=== PATIENT | male | born 1955 | race Caucasian/White ===

== ENCOUNTER 2016-05-17 12:30 | Emergency (ER) | payer OTHER ==
[~2016-05-17] VITALS: Ht 177.8 cm; Wt 90.7 kg
--- NOTE | 2016-05-17 12:56 | ED GENERAL ADULT ---
History of Present Illness General Chief Complaint: Psychiatric Related Complaint Stated Complaint: DEPRESSION; ANXIETY ATTACK Source: patient, old records Exam Limitations: no limitations Vital Signs & Intake/Output Vital Signs & Intake/Output Vital Signs Date Time Temp Pulse Resp B/P Pulse O2 O2 Flow FiO2 Ox Delivery Rate 05/17 1235 96.5 96 22 129/87 100 Room Air Room Air Allergies Coded Allergies: No Known Allergies (05/17/16) Reconcile Medications Allopurinol 300 MG TABLET 1 TAB PO DAILY GOUT (Reported) Atenolol 50 MG TABLET 1 TAB PO DAILY HEART (Reported) Mirtazapine 30 MG TABLET 1 TAB PO QPM SLEEP (Reported) Quetiapine Fumarate 400 MG TABLET 1 TAB PO QPM MENTAL HEALTH (Reported) Quetiapine Fumarate 50 MG TABLET 1 TAB PO QPM MENTAL HEALTH (Reported) Ramelteon (Rozerem) 8 MG TABLET 1 TAB PO QPM SLEEP (Reported) Rosuvastatin Calcium (Crestor) 20 MG TABLET 1 TAB PO DAILY CHOLESTEROL ( Reported) Triage Note: TRIAGE: 60 Y/O MALE PRESENTS C/O "ANXIETY ATTACK", REQUESTING MEDICATION. HISTORY OF MANIC DEPRESSION AND ANXIETY. REPORTS OCCASSIONAL ETOH CONSUMPTION, MARIJUANA USE, DAILY HALF PACK CIGARETTES. PATIENT DENIES SUICIDALITY, HOMICIDALITY. Triage Nurses Notes Reviewed? yes HPI: Patient presents requesting medication for anxiety. Patient states that he has bipolar and is currently in a manic episode. Patient states that his psychiatrist is on vacation and that he was told that if he ever cannot get alt of his psychiatrist just come to the emergency room. Patient denies any suicidal or homicidal ideations. Patient denies any hallucinations. Patient states that he is having racing thoughts. Patient states that he was admitted once in the late 1980s but does not feel that he is at the point that he needs admission currently. Past History Travel History Traveled to [place] past 21 day No Medical History Any Pertinent Medical History? see below for history Psychiatric: anxiety, MANIC DEPRESSION Surgical History Surgical History: non-contributory Psychosocial History What is your primary language Urdu Tobacco Use: Current Daily Use Daily Tobacco Use Amount/Type: => 5 Cigarettes daily ETOH Use: occasional use Illicit Drug Use: marijuana Family History Hx Contributory? No Review of Systems Review of Systems Constitutional: Reports: no symptoms. EENTM: Reports: no symptoms. Respiratory: Reports: no symptoms. Cardiovascular: Reports: no symptoms. GI: Reports: no symptoms. Genitourinary: Reports: no symptoms. Musculoskeletal: Reports: no symptoms. Skin: Reports: no symptoms. Neurological/Psychological: Reports: see HPI, anxiety. Hematologic/Endocrine: Reports: no symptoms. Immunologic/Allergic: Reports: no symptoms. All Other Systems: Reviewed and Negative Physical Exam Physical Exam General Appearance: well developed/nourished, alert, awake, anxious, moderate distress Head: atraumatic, normal appearance Eyes: Bilateral: PERRL, EOMI, other (HYPERVIGILANT). Ears, Nose, Throat: normal pharynx, normal ENT inspection, hearing grossly normal Neck: normal inspection, supple, full range of motion Respiratory: normal breath sounds, chest non-tender, no respiratory distress, lungs clear Cardiovascular: regular rate/rhythm, normal peripheral pulses Gastrointestinal: normal bowel sounds, soft, non-tender, no organomegaly Back: normal inspection, normal range of motion Extremities: normal inspection, normal capillary refill, normal range of motion, no edema Neurologic/Psych: no motor/sensory deficits, awake, alert, oriented x 3, normal gait, RAPID SPEECH Skin: intact, normal color, warm/dry Lymphatic: no anterior cervical maria t Core Measures ACS in differential dx? No CVA/TIA Diagnosis: No Severe Sepsis Present: No Septic Shock Present: No Progress Differential Diagnoses I considered the following diagnoses in my evaluation of the patient: [Manic episode] Plan of Care: Orders Procedure Date/time Status URINE DRUGS OF ABUSE 05/17 1256 Complete ETHANOL 05/17 1256 Complete COMPREHENSIVE METABOLIC PANEL 05/17 1256 Complete CBC WITHOUT DIFFERENTIAL 05/17 1256 Complete ED CRISIS PSYCH CONSULT 05/17 1256 Active Laboratory Tests 05/17/16 1402: Urine Opiates Screen < 100.00, Methadone Screen 93, Barbiturate Screen < 60, Ur Phencyclidine Scrn < 6.00, Amphetamines Screen < 100, U Benzodiazepines Scrn 124 , Urine Cocaine Screen < 50, Urine Cannabis Screen > 80.00 H 05/17/16 1307: Anion Gap 16, Estimated GFR 56 L, BUN/Creatinine Ratio 19.2, Glucose 121 H, Calcium 10.2, Total Bilirubin 0.6, AST 75 H, ALT 90 H, Alkaline Phosphatase 85 , Total Protein 7.7, Albumin 4.6, Globulin 3.1, Albumin/Globulin Ratio 1.5, CBC w Diff NO MAN DIFF REQ, RBC 5.32, MCV 92.1, MCH 30.3, RDW 16.1 H, MPV 10.3, Gran % 59.9, Lymphocytes % 27.3, Monocytes % 8.0, Eosinophils % 4.5, Basophils % 0.3, Absolute Granulocytes 5.2, Absolute Lymphocytes 2.3, Absolute Monocytes 0.7 H, Absolute Eosinophils 0.4, Absolute Basophils 0, PUBS MCHC 32.9 L, Serum Alcohol < 10.0 Initial ED EKG: none Comments: Patient has been seen and evaluated by the psychiatrist. The patient is cleared for discharge. The patient will be placed on Klonopin twice a day and will be given enough until he sees his psychiatrist on Thursday. Departure Departure Disposition: HOME OR SELF CARE Condition: Stable Clinical Impression Primary Impression: Anxiety Referrals: LAUREANO MENDOZA APRN (PCP/Family) Additional Instructions: FOLLOW UP WITH YOUR PSYCHIATRIST ON THURSDAY Departure Forms: Customer Survey General Discharge Information Prescriptions: Current Visit Scripts Clonazepam (Klonopin) 1 TAB PO BIDP PRN ANXIETY #4 TAB Critical Care Note Critical Care Note Critical Care Time: non-applicable
[2016-05-17] MEDS ORDERED: ATENOLOL50 M1 PO (13:02)
[2016-05-17] MEDS ORDERED: MIRTAZAPINE30 M2 PO (13:02)
[2016-05-17] MEDS ORDERED: ROZEREM8 M1 PO (13:03)
[2016-05-17] MEDS ORDERED: ALLOPURINOL300 M1 PO (13:03)
[2016-05-17] MEDS ORDERED: QUETIAPINE FUMA50 M1 PO (13:04)
[2016-05-17] MEDS ORDERED: QUETIAPINE FUM400 M1 PO (13:04)
[2016-05-17] MEDS ORDERED: CRESTOR20 M2 PO (13:06)
[2016-05-17 13:40] LABS: ABSOLUTE BASOPHIL COUNT 0 /CUMM (0.0-0.2); ABSOLUTE EOSINOPHIL COUNT 0.4 /CUMM (0.0-0.7); ABSOLUTE GRANULOCYTE CT 5.2 /CUMM (1.4-6.5); ABSOLUTE LYMPH COUNT 2.3 /CUMM (1.2-3.4); ABSOLUTE MONOCYTE COUNT 0.7 /CUMM (0.10-0.60); BASOPHIL % 0.3 % (0.0-2.0); EOSINOPHIL % 4.5 % (0-5); GRANULOCYTE % 59.9 % (42.2-75.2); MEAN CORPUSCULAR HGB 30.3 PG (27.0-31.0); MEAN CORPUSCULAR HGB CONC 32.9 G/DL (33.0-37.0); MEAN CORPUSCULAR VOLUME 92.1 FL (80.0-94.0); MEAN PLATELET VOLUME 10.3 FL (7.4-10.4); PLATELET COUNT 167 /CUMM (130-400); RBC DISTRIBUTION WIDTH 16.1 % (11.5-14.5); RED BLOOD CELL CT 5.32 /CUMM (4.70-6.10); WHITE BLOOD CELL COUNT 8.6 /CUMM (4.8-10.8)
--- NOTE | 2016-05-17 15:51 | ED PSYCH CRISIS CONSULTATION ---
Crisis Consult Basic Assessment Date of Consult: 05/17/16 Responsible Person/Accompanied By: self Insurance Authorization: Insurance #1: Insurance name: CHELSEA MIRANDA Phone number: Policy number: [id number] Group number: Authorization number: n/a ED Provider: Patient's ED Provider: TOM GRACE MD Primary Care Physician: Patient's PCP: LAUREANO MENDOZA APRN PCP's Current Psychiatrist: Charleen Lee APRN Chief Complaint: Psychiatric Related Complaint Patient's Quote: "I feel like I don't have a cap on my head and the thoughts are coming out" Present Illness: 60 year old male presenting to ED with complaints of increased anxiety over the past three weeks. Pt. reported to this crisis clincian that he feels like "I don't have a cap on my head and my thoughts are coming out", agreeing that he may be having a manic episode. Pt's speech was somewhat pressured. Both of pt' s hands were tremulous, but he said that he has had those tremors for the past year. Pt reported that he has not been sleeping or eating well recently. He denied any current suicidal or homicidal thoughts and denied any audio or visual hallucinations. Pt reported that he is in psychiatric treatment at [facility] and sees Charleen JORDAN and is prescribed Quetiapine Fumarate, 650mg, Mirtazapine, 30mg and Rozerem, 8mg. Pt reported that Ms. Lee has been on vacation for the past two weeks, but that three weeks ago when the anxiety first started, she gave him a one week prescription for Klonopin and that it helped. Pt said that he went to [facility] the week, but that they said that his prescriber was not there and they could not help him. Pt also reported that he has a past hx of heavy alcohol use, but had only been drinking occasionally until the past three weeks. Pt reported that he has been drinking about a half a pint of alcohol daily for the last three weeks, with his last use being last night. Pt also uses daily cannabis. Pt. denied any other substance use. Patient's Address: [address] [place] [address] Other Phone Number: Who Do You Live With? Patient/Self Family/Informants Interviewed: no family/collateral ID'd Allergies - Coded Allergies: No Known Allergies (05/17/16) Current Medications - Scheduled Medications Allopurinol 300 MG TABLET 1 TAB PO DAILY GOUT #90 (Reported) Entered as Reported by WILLY STONE on 05/17/16 1303 Atenolol 50 MG TABLET 1 TAB PO DAILY HEART #30 (Reported) Entered as Reported by WILLY STONE on 05/17/16 1302 Mirtazapine 30 MG TABLET 1 TAB PO QPM SLEEP #30 (Reported) Entered as Reported by WILLY STONE on 05/17/16 1302 Quetiapine Fumarate 400 MG TABLET 1 TAB PO QPM MENTAL HEALTH (Reported) Entered as Reported by WILLY STONE on 05/17/16 1304 Quetiapine Fumarate 50 MG TABLET 1 TAB PO QPM MENTAL HEALTH #30 (Reported) Entered as Reported by WILLY STONE on 05/17/16 1304 Ramelteon (Rozerem) 8 MG TABLET 1 TAB PO QPM SLEEP (Reported) Entered as Reported by WILLY STONE on 05/17/16 1303 Rosuvastatin Calcium (Crestor) 20 MG TABLET 1 TAB PO DAILY CHOLESTEROL #90 ( Reported) Entered as Reported by WILLY STONE on 05/17/16 1306 Laboratory Results: Laboratory Tests 05/17/16 1402: Urine Opiates Screen < 100.00, Methadone Screen 93, Barbiturate Screen < 60, Ur Phencyclidine Scrn < 6.00, Amphetamines Screen < 100, U Benzodiazepines Scrn 124 , Urine Cocaine Screen < 50, Urine Cannabis Screen > 80.00 H 05/17/16 1307: Anion Gap 16, Estimated GFR 56 L, BUN/Creatinine Ratio 19.2, Glucose 121 H, Calcium 10.2, Total Bilirubin 0.6, AST 75 H, ALT 90 H, Alkaline Phosphatase 85 , Total Protein 7.7, Albumin 4.6, Globulin 3.1, Albumin/Globulin Ratio 1.5, CBC w Diff NO MAN DIFF REQ, RBC 5.32, MCV 92.1, MCH 30.3, RDW 16.1 H, MPV 10.3, Gran % 59.9, Lymphocytes % 27.3, Monocytes % 8.0, Eosinophils % 4.5, Basophils % 0.3, Absolute Granulocytes 5.2, Absolute Lymphocytes 2.3, Absolute Monocytes 0.7 H, Absolute Eosinophils 0.4, Absolute Basophils 0, PUBS MCHC 32.9 L, Serum Alcohol < 10.0 Past History Past Medical History Psychiatric: anxiety, MANIC DEPRESSION Past Surgical History Surgical History: non-contributory Psychosocial History Strengths/Capabilities: Intreatment, able to ask for help Physical Limitations (Interventions): tremors in hands Psychiatric Treatment History Psych Treatment Psychiatric Treatment Yes Inpatient Treatment Yes Outpatient Treatment Yes Location of Treatment Outpatient at [facility] Reason for Treatment Bipolar D/O, Anxiety. Reports that he was hospitalized one time in the for a manic episode. Dates of Treatment current outpatient; inpatient once in the Response to Treatment unk Diagnosis by History: Bipolar Disorder, Anxiety Substance Use/Abuse History Drug Use/Abuse 1 Substances Used/Abused Yes Substance Used/Abused Alcohol First Use unk Last Used last night How much used/taken 1/2 pint of vodka How often daily For how long past 3 weeks, before that, used on occasion. Route of use oral Drug Use/Abuse 2 Substances Used/Abused Yes Substance Used/Abused Marijuana First Use unk Last Used yesterday How much used/taken unk How often daily For how long unk Route of use smoking Substance Abuse Treatment Substance Abuse Treatment Past Substance Abuse [place] No Comments: n/a Current Mental Status Mental Status Orientation: Person, Place, Situation Affect: Anxious Speech: Pressured Neuro-vegetative: Appetite Decreased, Concentration Poor, Sleep Disturbance Appearance Appearance- Dress/Hygiene: tremulous hands, sticking tongue in and out of mouth Behaviors Thought Process: WNL Thought Content: WNL Memory: WNL Insight: Fair SI/HI Risk Assessment Past Suicidal Ideation/Attempts Yes (one past attempt in his 20's) Current Suicidal Ideation/Att No Past Homicidal Ideation/Att: No Current Homicidal Ideation/Attempts No Degree of Intent: None Danger To: none Gravely Disabled: none Risk Factors: high anxiety/distress, history of suicide atmpts, SA/MH hospitalized, substance abuse, lives alone, male Lethality Ratin (mild) PTSD Checklist PTSD Done? patient declined ED Management Sitter: Yes Restraints: No DSM5/PS Stressors/Medical Prob Diagnosis' (DSM 5, Stressors, Medical): F31.12 - Bipolar I, current episode manic, moderate; F10.10 - Alcohol Use D/O, mild. Stressors: limited supports. Medical - gout, tremors in both hands. Current GAF: 50 Comments: Functioning only somewhat impaired, moderate symptoms, no SI Departure Disposition Psych Medical Clearance Date: 05/17/16 Medically Cleared at: 1440 Time Started: 1440 Time Ended: 1505 Psychiatrist Consulted: Ovidio Prince MD Date Disposition Established: 05/17/16 Time Disposition Established: 1505 Plan for Disposition - Modality: Outpatient Facility: [facility] Follow-up Appt Date: 05/19/16 Follow-Up Appt Time: 0900 Contact: JULIAN Lee or who is covering for her Telephone: n/a Rationale for Disposition: Pt. denies SI or HI and is not gravely disabled. Pt is connected with treatment and will follow up there on Thursday. Pt given small script of Klonopin to help with anxiety. Pt discharged to home. Additional Instructions: none Referrals LAUREANO MENDOZA APRN (PCP/Family)
[2016-05-17] MEDS ORDERED: KLONOPIN1 M1 PO (16:03)
[2016-05-17 16:15] VITALS: BP 154/82
--- NOTE | 2016-05-17 17:26 | ED PSYCHIATRIST/APRN CONSULT ---
Psychiatrist/[employer] ARCHITECT ED Consult Assessment and Plan: Reviewed case with crisis SW and personally examined patient. 60 y/o male patient of [facility], per patient, previous diagnoses of bipolar d/o complicated by significant anxiety. Worsening anxiety and restlessness over past few weeks. Unable to reach his primary prescriber at [facility]. Present to ED for help , drove self. Denies safety concerns, adamantly denies SI or HI. Asks for medication to help bridge him to [facility] on Thursday. He does not ask for any particular medication, says "whatever you think will help". Does not feel he requires hospitalization. Clarified his seroquel dose with Jonathan, and says he takes 200 mg QAM + 400 mg QHS. MSE notable for a well-groomed CM with poor dentition and clear evidence of TD. His speech is influenced by TD but o/w wnl. He is not pressured. He is anxious appearing. Mood is "anxious". Affect is anxious but non-labile and full range. TP is logical and linear. TC: not grandiose. Denies SI/HI. Denies perceptual disturbances. Cognition is grossly intact, and i/j is fair. Reviewed CTPMP: the patient's desription of recent clonazepam bridges by [facility] prescriber Charleen Lee is entirely supported. He was given 1 mg BID clonazepam #14 in March as well as in early April. There is no other evidence of obtaining BZDs from any other prescriber in [place]. A/P: Jonathan does seem to be experiencing a progression in his anxiety and or restlessness over past few weeks that is not accompanied by evidence of danger to himself or others, and he is not gravely disabled. I do not see an indication for psychiatric hospitalization, nor does the patient. He is best served by helping him return to his outpatient treatment site, [facility]. He is essentially at or close to the maximum therapeutic dose of seroquel so it is unclear that suggesting more seroquel will help his symptoms. Will discharge home after writing for clonazepam 1 mg BID, #4, which is enough medication to bridge him through Thursday AM to see a prescriber at [facility]. Jonathan was counseled thoroughly against drinking EtOH while taking clonazepam. He was also counseled to return to the ED if his symptoms worsen or he develops suicidal or homicidal thoughts. Patient is in agreement with this plan.
== END 2016-05-17 16:18 ==
LOC: ERH 12:30
PROVIDERS: Emergency Medicine
DX: F41.9 Anxiety disorder, unspecified (principal); F10.10 Alcohol abuse, uncomplicated; F12.10 Cannabis abuse, uncomplicated
CPT/HCPCS: 80307; G0463; G0480; J3101